=== PATIENT | male | born 1965 | race Hispanic/Latino ===

== ENCOUNTER 2021-08-15 10:40 | Emergency (ER) | payer OTHER ==
[2021-08-15] MEDS ORDERED: Ketorolac Tromethamine 60 MG/2 ML VIAL ONE (12:12)
== END 2021-08-15 13:15 | disposition home or self-care (01) ==
LOC: MADERS 10:40
DX: S20.213A Contusion of bilateral front wall of thorax, initial encounter (principal); V49.9XXA Car occupant (driver) (passenger) injured in unspecified traffic accident, initial encounter
CPT/HCPCS: 70450; 71046; 72072; 72100; 72125; 84484; 93005; 96372; J1885